=== PATIENT | female | born 1945 | race Two or more races ===

== ENCOUNTER 2024-11-27 04:54 | Emergency (ER) | payer MEDICARE, MEDICAID, SELFPAY ==
[2024-11-27 05:03] VITALS: BP 127/88; PULSE 107; RESP 20; TEMP 36.8; O2SAT 98
--- NOTE | 2024-11-27 05:03 | EKG_ITS ---
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
--- NOTE | 2024-11-27 05:04 | PD.EDRME ---
Rapid Medical Screening Exam RME Arrival date/time: 11/27/24 04:54 79 yo f present to ED for c/o abd pain. I have greeted and performed a focused initial assessment of this patient. A comprehensive ED assessment and evaluation of the patient, analysis of all test results, and completion of the medical decision making process will be conducted by additional ED providers. Chief Complaint: Abdominal Pain Time Seen by Provider: 11/27/24 04:58
[2024-11-27] MEDS: traMADol HCL 50 MG TABLET PO (05:19)
[2024-11-27 05:50] LABS: Basophils # (Auto) 0.1 Thou/mm3 (0.0-0.2); Basophils % (Auto) 1 % (0-2.5); Eosinophils # (Auto) 0.2 Thou/mm3 (0.0-0.5); Eosinophils % (Auto) 2 % (0-10); Hematocrit 40.3 % (36.0-46.0); Hemoglobin 13.9 g/dL (12.0-16.0); Immature Granulocytes % (Auto) 0 % (0-0); Immature Granulocytes Auto 0.03 Thou/mm3 (0.00-0.00); Lymphocytes # (Auto) 0.6 Thou/mm3 (1.0-4.8); Lymphocytes % (Auto) 7 % (10-50); Mean Corpuscular HGB Conc 34.5 g/dl (31.0-37.0); Mean Corpuscular Hemoglobin 32.2 pg (25.0-35.0); Mean Corpuscular Volume 93 fL (80-100); Monocytes # (Auto) 0.5 Thou/mm3 (0.0-0.8); Monocytes % (Auto) 6 % (0-12); Neutrophils # (Auto) 7.3 Thou/mm3 (1.8-7.7); Neutrophils % (Auto) 84 % (37-80); Nucleated Red Blood Cell % 0 /100 WBC (0); Platelet Count 233 Thou/mm3 (140-440); RDW Standard Deviation 44.3 fL (36.4-46.3); Red Blood Count 4.32 Miln/mm3 (4.00-5.20); White Blood Count 8.6 Thou/mm3 (3.6-11.0)
[2024-11-27 06:11] LABS: Alanine Aminotransferase 15 U/L (10-49); Albumin, Serum 4.8 gm/dL (3.4-4.8); Alkaline Phosphatase 107 U/L (46-116); Anion Gap 13 (7-16); Aspartate Amino Transferase 19 U/L (0-34); BUN/Creatinine Ratio 23 Ratio (12-20); Bilirubin,Total 0.4 mg/dL (0.3-1.2); Blood Urea Nitrogen 23 mg/dL (9-23); Calcium 10.1 mg/dL (8.3-10.6); Calcium (Corrected) 10.1 mg/dL (8.5-10.1); Carbon Dioxide 20.5 mMol/L (20.0-31.0); Chloride 110 mMol/L (98-107); Globulin 2.4 gm/dL (2.3-3.5); Glucose 125 mg/dL (74-106); Lipase 36 U/L (12-53); Osmolality,Calculated 289 (275-295); Potassium 3.9 mMol/L (3.4-5.1); Sodium 143 mMol/L (136-145); Total Protein 7.2 gm/dL (5.7-8.2); Troponin I < 0.020 ng/mL (0.0-0.045); eGFR 57 See Note
[2024-11-27] MEDS: ONDANSETRON ODT 4 MG TABRAP PO (06:15)
[2024-11-27 08:29] VITALS: BP 137/102; PULSE 110; RESP 15; TEMP 36.4; O2SAT 98
--- NOTE | 2024-11-27 08:34 | PC.NURSE ---
Pt arrives from home with abdominal pain that began last night in the epigastric region accompanied w/nausea. pt walks with walker at baseline. Family at bedside attentive to pt, pt is hypertensive on tele all other vss.
--- NOTE | 2024-11-27 09:19 | CHAP ---
Patient expressed gratitude for visit and prayer.
[2024-11-27] MEDS: LIDOCAINE VISCOUS 2% 15 ML UDC 10 ML PO (10:03)
[2024-11-27] MEDS: MG HYD/AL HYD/SIME (Maalox Reg) SUSP 30 ML UDC PO (10:03)
--- NOTE | 2024-11-27 10:28 | EDNOTE_ITS ---
ED Abdominal Pain RME/HPI General Chief Complaint: Abdominal Pain Stated complaint: ABD PAIN Time seen by provider: 11/27/24 04:58 Arrival date/time: 11/27/24 04:54 RME / HPI RME / HPI narrative: 11/27/24 04:54 79 yo f present to ED for c/o abd pain. I have greeted and performed a focused initial assessment of this patient. A comprehensive ED assessment and evaluation of the patient, analysis of all test results, and completion of the medical decision making process will be conducted by additional ED providers. DR. ECHEVARRIA MAIN ED EVALUATION 79 year old female with history of hypertension presents to the ED for evaluation of abdominal pain beginning yesterday ~ 7pm, 1 hour after eating a chicken sandwich for dinner. States the pain is located most to the epigastric area, without radiation, rating as moderate. States pain persisted through the night and was only very minimally improved after drinking Mylanta and a warm chamomile tea. Noted pain to be aggravated while lying flat. Denies any fevers, chills, chest pain, cough, shortness of breath, vomiting, diarrhea, constipation, or urinary symptoms. Related Data Home Medications ?Medication ?Instructions ?Recorded ?Confirmed gabapentin 300 mg capsule 300 mg PO TID 03/07/20 11/01/21 metoprolol tartrate 50 mg tablet 50 mg PO BID 03/07/20 11/01/21 lisinopril 40 mg tablet 40 mg PO QDAY 06/27/21 11/01/21 Previous Rx's ?Medication ?Instructions ?Recorded hydrocodone 5 mg-acetaminophen 325 1 tab PO Q8H PRN severe pain 03/10/20 mg tablet (scale score 7-10) #20 tabs sennosides 8.6 mg-docusate sodium 1 tab PO HS PRN Constipation #15 03/10/20 50 mg tablet (DOK Plus) tabs cyanocobalamin (vitamin B-12) 500 500 mcg PO QDAY #90 tabs 07/09/21 mcg tablet (Vitamin B-12) folic acid 1 mg tablet 1 mg PO QDAY #90 tabs 07/09/21 ondansetron HCl 4 mg tablet 4 mg PO Q6H PRN nausea and 04/02/22 vomiting #14 tabs Allergies Allergy/AdvReac Type Severity Reaction Status Date / Time No Known Allergies Allergy Verified 10/20/23 23:30 Review of Systems Review of Systems Narrative Review of Systems: Gen: No fever, no chills, no weight loss EYES: No discharge, no visual changes, no pain HEENT: No ear pain, no congestion, no sore throat PULM: no shortness of breath, no cough, no congestion CV: No chest pain, no dyspnea on exertion, no palpitations, no chest tightness GI: No nausea, no vomiting, no diarrhea, + pain, no constipation : No frequency, no urgency,? no dysuria Musc/skel: No joint pain, no back pain Skin: No rash, no ecchymosis, no lesions Psyc: No hallucinations, no depression Heme/Lymph: No easy bleeding or bruising tendencies Neuro: No weakness, no headache Past Medical History Past Medical History NEUROLOGIC: Negative Neurological Disorders CARDIAC: Positive Cardiac Disorders and Hypertension REPRODUCTIVE: Positive Previous Pregnancies MUSCULOSKELETAL: Positive Degenerative Disk Disease HEMATOLOGIC: Positive Blood Disorders and Anemia OTHER HISTORY: Positive Blood Transfusions Surgical History SURGICAL: Positive Hysterectomy Social History SMOKING STATUS: Never smoker SUBSTANCE USE: does not use ED Exam Narrative Physical exam: GENERAL APPEARANCE: AxOx4, no obvious distress, nontoxic appearing HEENT: NC, AT. MMM. EOMI, clear conjunctiva, oropharynx clear. NECK: Supple without lymphadenopathy. No stiffness or restricted ROM. HEART: Normal rate and regular rhythm, normal S1/S1, no m/r/g LUNGS: CTAB, moving air well. No crackles or wheezes are heard. ABDOMEN: Soft, well healed vertical surgical scar noted, nontender, nondistended with good bowel sounds heard. BACK: No midline C/T/L spine pain or deformity, No CVAT, no obvious deformity. EXTREMITIES: Without cyanosis, clubbing or edema. MUSCULOSKELETAL: FROM of all major joints, no chest tenderness NEUROLOGICAL: Grossly nonfocal. Alert and oriented, moving all 4 extremities. CN not formally tested but appear grossly intact. Skin: Warm and dry without any rash. Course Quality Measures none Orders Category Date Time Status EKG (ED ONLY) *Do not use* NOW Care 11/27/24 05:03 Completed EKG (ED Only) Stat Exams 11/27/24 05:03 Draft CBC Stat Lab 11/27/24 05:14 Completed CMP [Comprehensive Metabolic Panel] Stat Lab 11/27/24 05:14 Completed Lipase Stat Lab 11/27/24 05:14 Completed Troponin I Stat Lab 11/27/24 05:14 Completed Lidocaine 2% Viscous [Xylocaine 2% Viscous] Med 11/27/24 09:47 Discontinued 10 ml PO X1 ONE Ondansetron Odt [Zofran Odt] Med 11/27/24 06:07 Discontinued 4 mg PO X1 ONE Ondansetron Odt [Zofran Odt] Med 11/27/24 06:11 Discontinued 4 mg PO X1 ONE mg Hyd/Al Hyd/Aditya Susp [Maalox Susp] Med 11/27/24 09:47 Discontinued 30 ml PO X1 ONE traMADol HCL [Ultram] Med 11/27/24 05:03 Discontinued 50 mg PO X1 ONE Reevaluation(s) Reevaluation #1: Patient remains clinically stable throughout the emergency department visit. We reviewed all the results, analysis, and treatment plans. Patient is amenable to discharge. Strict return precautions were outlined. Patient was discharged in stable condition. Time: 09:50 Vital Signs Vital signs: Vital Signs Temperature 98.3 F 11/27/24 05:03 Pulse Rate 107 H 11/27/24 05:03 Respiratory Rate 20 11/27/24 05:03 Blood Pressure 127/88 H 11/27/24 05:03 Pulse Oximetry (%) 98 11/27/24 05:03 Oxygen Delivery Method Room Air 11/27/24 05:03 Pulse ox is 98% on room air which is adequate. Abdominal Pain MDM MDM Narrative MDM Narrative:: Radha Gunter am scribing for and in the presence of Dr. Echevarria. Patient data External records reviewed:: [facility] previous records (I reviewed ED visit on 10/21/2023) Clinical information provided by:: patient Social determinants that could affect healthcare access:: none Patient has the following chronic illnesses:: HTN How is presenting disease/condition affected by chronic disease/condition?: uneffected by Evaluation data The following diagnostics were reviewed and interpreted by me:: lab results and EKG tracing(s) (Sinus rhythm, rate 99, normal axis, normal interval, no acute ST or T-wave changes, no STEMI. ) Lab and/or radiology exams considered but not ordered:: None Interpretation Summary: As noted above Medications / Prescriptions Medications or Prescriptions considered but not ordered:: None Medication administrations:: Medication Administration History Discontinued Medications Al Hydrox/Mg Hydrox/Simethicone (Mg Hyd/Al Hyd/Aditya (Maalox Reg) Susp 30 Ml Udc) 30 ml PO X1 ONE Stop: 11/27/24 09:48 Last Admin: 11/27/24 10:03 Dose: 30 ml Documented By: TM Lidocaine HCl (Lidocaine Viscous 2% 15 Ml Udc) 10 ml PO X1 ONE Stop: 11/27/24 09:48 Last Admin: 11/27/24 10:03 Dose: 10 ml Documented By: TM Comments: Ondansetron HCl (Ondansetron Odt 4 Mg Tabrap) 4 mg PO X1 ONE; Protocol Stop: 11/27/24 06:08 Last Admin: 11/27/24 06:11 Dose: Not Given Documented By: CVL Non-Admin Reason: Duplicate Medication on eMAR Ondansetron HCl (Ondansetron Odt 4 Mg Tabrap) 4 mg PO X1 ONE; Protocol Stop: 11/27/24 06:12 Last Admin: 11/27/24 06:15 Dose: 4 mg Documented By: CVL Tramadol HCl (Tramadol Hcl 50 Mg Tablet) 50 mg PO X1 ONE Stop: 11/27/24 05:04 Last Admin: 11/27/24 05:19 Dose: 50 mg Documented By: CVL See above Consultations Consultation(s) initiated? (list below): No Diagnosis Differential diagnosis abdominal pain: abdominal pain, constipation, gastroenteritis and other (Gastritis) Most likely diagnosis given after review of the tests above:: Peptic ulcer disease Admission Indicated Admission indicated?: not indicated Admission Request Was there a request for admission?: No Disposition Plan Disposition Plan: Discharge Discharge Attestation Discharge Attestation: The patient and all family members were given an opportunity to ask questions and understood the discharge instructions. Discharge instructions specifically effects, indications for sooner follow up or return to the emergency department, and the expected course of current diagnosis. Patient condition: Stable Discharge Plan Plan Patient Disposition: HOME (Self Care) Prescriptions/Referrals Prescriptions/Med Rec: No Action lisinopril 40 mg tablet 40 mg PO QDAY cyanocobalamin (vitamin B-12) [Vitamin B-12] 500 mcg Tablet 500 mcg PO QDAY Qty: 90 0RF folic acid 1 mg Tablet 1 mg PO QDAY Qty: 90 0RF metoprolol tartrate 50 mg Tablet 50 mg PO BID gabapentin 300 mg Capsule 300 mg PO TID hydrocodone-acetaminophen 5-325 mg Tablet 1 tab PO Q8H MDD 3 tabs PRN (Reason: severe pain (scale score 7-10)) Qty: 20 0RF sennosides-docusate sodium [DOK Plus] 8.6-50 mg Tablet 1 tab PO HS PRN (Reason: Constipation) Qty: 15 0RF ondansetron HCl 4 mg tablet 4 mg PO Q6H PRN (Reason: nausea and vomiting) Qty: 14 0RF Referrals: Sacha Azul MD [Primary Care Provider] - In 1 week Problem List Clinical Impression: Peptic ulcer disease Patient/Caregiver Discharge Instructions Education Materials: ED PEPTIC ULCER vs GASTRITIS Additional Instructions: Puede angus famotidina (Pepcid) de venta zafar, 20 mg dos veces al d?a spencer los pr?ximos 7 d?as. Delaney un seguimiento con lopez m?dico de atenci?n primaria en 5 a 7 d?as para volver a controlarlo. Puede regresar al departamento de emergencias antes si los s?ntomas empeoran o si nota alg?n problema nuevo que le preocupe. Print Language: Croatian Stand Alone Forms: Isha Award Info., Patient Portal Info Letter
[2024-11-27 10:40] VITALS: BP 144/88; PULSE 84; RESP 14; TEMP 36.6; O2SAT 98
== END 2024-11-27 10:39 | disposition home or self-care (01) ==
PROVIDERS: Physician Assistant; Emergency Provider Emergency Medicine; PCP Family Medicine
DX: K27.9 Peptic ulcer, site unspecified, unspecified as acute or chronic, without hemorrhage or perforation (principal); I10 Essential (primary) hypertension
CPT/HCPCS: 36415; 80053; 81001; 83690; 84484; 85025; 87086; 93005; 99283; J3490; Q0162; A9270

== ENCOUNTER → 2024-12-07 | Outpatient (CLI) | payer MEDICARE, MEDICAID, SELFPAY ==
--- NOTE | 2024-12-07 16:09 | XR_ITS ---
EXAMINATION: Ankle, left 3 views . Technique: Ankle AP, oblique, lateral 3 views Date and time of exam: December 07, 2024 1625 hours INDICATIONS: Chronic ankle pain, history ankle fusion FINDINGS: Severe osteopenia Tibiotalar talar calcaneal fusion with satisfactory alignment Orthopedic hardware satisfactory position No acute fracture Resection distal fibula IMPRESSION: Severe osteopenia Extensive ankle fusion with satisfactory alignment
--- NOTE | 2024-12-07 16:09 | XR_ITS ---
Examination: Lumbar spine, 5 views Technique: Lumbar spine AP, lateral, coned lateral lower lumbar spine, bilateral obliques 5 views Exam date and time: December 07, 2024 1625 hours INDICATIONS: Low back pain radiating down the left side years, history lumbar spine surgery FINDINGS: Severe osteopenia Lumbar dextroscoliosis 15 degrees Left hip arthroplasty Diffuse advanced facet arthropathy Transpedicular lumbar fusion L2-L5 with satisfactory alignment Advanced degenerative disc disease T12-L1 Prominent lumbar spondylosis IMPRESSION: Transpedicular lumbar fusion L2-L5 with satisfactory alignment Advanced degenerative disc disease T12-L1
--- NOTE | 2024-12-07 16:09 | XR_ITS ---
Examination: Knee, left , 3 views Technique: Knee AP, lateral, oblique 3 views Date and time of exam: December 07, 2024 1625 hours INDICATIONS: Left knee pain years FINDINGS: Severe osteopenia Total left knee arthroplasty Satisfactory alignment No definite loosening of the prosthetic components IMPRESSION: Severe osteopenia Total left knee arthroplasty with satisfactory alignment
--- NOTE | 2024-12-07 16:09 | XR_ITS ---
Examination:Left hip AP, lateral, AP pelvis 3 views Technique: Hip AP lateral, AP pelvis, 3 views Exam date and time:December 07, 2024 1625 hours INDICATIONS: Left hip pain years FINDINGS: Left hip arthroplasty. Satisfactory alignment Old fracture deformities left superior inferior pubic rami and left acetabulum Healed right hip fracture Partial visualization superficial femoral artery stent Severe osteopenia IMPRESSION: Left hip arthroplasty with satisfactory alignment.
== END | disposition home or self-care (01) ==
PROVIDERS: PCP Family Medicine; Referring Provider Orthopaedic Surgery; Visit Provider Orthopaedic Surgery
DX: M51.35 Other intervertebral disc degeneration, thoracolumbar region (principal); M43.26 Fusion of spine, lumbar region; Z96.642 Presence of left artificial hip joint; M85.872 Other specified disorders of bone density and structure, left ankle and foot; M24.672 Ankylosis, left ankle; Z96.652 Presence of left artificial knee joint; M85.88 Other specified disorders of bone density and structure, other site
CPT/HCPCS: 72110; 73502; 73562; 73610

== ENCOUNTER 2025-06-07 15:13 | Emergency (ER) | payer MEDICAID, SELFPAY ==
[2025-06-07 15:14] VITALS: BMI 22.6
[2025-06-07 15:22] VITALS: BP 146/82; PULSE 73; RESP 19; TEMP 36.6; O2SAT 100
--- NOTE | 2025-06-07 15:51 | EDNOTE_ITS ---
<Statement entered by Vandana Strong MD - 06/07/25 17:21> As co-signing physician, I was present and available for consult prn. I concur with the plan and care as documented by the midlevel provider. ED Skin Abcess FB-RME/HPI General Chief complaint: General Adult/Misc Complain Stated complaint: HEMORRHOIDS; STATES SOMETHING IS OUT Time Seen by Provider: 06/07/25 15:22 Source: patient Arrival date/time: 06/07/25 15:13 80-year-old female with a history of hypertension presents to the emergency room with a chief complaint of hemorrhoids pain, itching x 2 weeks Mode of arrival: ambulatory Limitations: no limitations Related Data Home Medications ?Medication ?Instructions ?Recorded ?Confirmed gabapentin 300 mg capsule 300 mg PO TID 03/07/2011/01 metoprolol tartrate 50 mg tablet 50 mg PO BID 03/07/20 11/01/21 lisinopril 40 mg tablet 40 mg PO QDAY 06/27/2111/01 Previous Rx's ?Medication ?Instructions ?Recorded hydrocodone 5 mg-acetaminophen 325 1 tab PO Q8H PRN se gurmeet pain 03/10/20 mg tablet (scale score 7-10) #20 tabs sennosides 8.6 mg-docusate sodium 1 tab PO HS PRN Cons tipation #15 03/10/20 50 mg tablet (DOK Plus) tabs cyanocobalamin (vitamin B-12) 500 500 mcg PO QDAY #90 tabs 07/09/21 mcg tablet (Vitamin B-12) folic acid 1 mg tablet 1 mg PO QDAY #90 tabs ondansetron HCl 4 mg tablet 4 mg PO Q6H PRN nausea and 04/02/22 vomiting #14 tabs clotrimazole 1 % topical cream 1 applic topical BID 4 weeks #30 06/07/25 grams dimethicone 1 %-zinc oxide 10 1 applic topical .prn ra sh #113 06/07/25 %-vit A and D-aloe vera topical grams cream (Zinc Oxide Diaper Cream) Allergies Allergy/AdvReac Type Severity Reaction Status Date / Time No Known Allergies Allergy Verified 06/07/25 15:17 Review of Systems Review of Systems Systems Reviewed: All systems reviewed, normal except as documented Constitutional Constitutional: Reports system reviewed and no additional complaints, except as documented, Denies fatigue, Denies fever(s), Denies headache(s) and Denies weakness Eyes Eyes: Reports system reviewed and no additional complaints, except as documented, Denies blurry vision and Denies change in vision ENT Ears, Nose, Mouth, and Throat: Reports system reviewed and no additional complaints, except as documented, Denies otalgia, Denies headache(s), Denies nasal congestion, Denies throat swelling and Denies vertigo Cardiovascular Cardiovascular: Reports system reviewed and no additional complaints, except as documented, Denies chest pain, Denies dyspnea and Denies dyspnea on exertion Respiratory Respiratory: Reports system reviewed and no additional complaints, except as documented, Denies chest congestion, Denies cough, Denies dyspnea, Denies dyspnea on exertion and Denies wheezing Gastrointestinal Gastrointestinal: Reports system reviewed and no additional complaints, except as documented, Denies abdominal pain, Denies cramping, Denies nausea and Denies vomiting Genitourinary Genitourinary: Reports system reviewed and no additional complaints, except as documented Musculoskeletal Musculoskeletal: Reports system reviewed and no additional complaints, except as documented and Denies back pain Integumentary/Breasts Skin/Breast: Reports system reviewed and no additional complaints, except as documented and Denies wounds Neurologic Neurologic: Reports system reviewed and no additional complaints, except as documented, Denies confusion, Denies headache(s), Denies lack of coordination, Denies vertigo and Denies weakness Psychiatric Psychiatric: Reports system reviewed and no additional complaints, except as documented, Denies anxiety, Denies confusion, Denies depression, Denies paranoia, Denies suicidal ideation and Denies tactile hallucinations Endocrine Endocrine: Reports system reviewed and no additional complaints, except as documented and Denies fatigue Hematologic/Lymphatic Hematologic/Lymphatic: Reports system reviewed and no additional complaints, except as documented and Denies lymphadenopathy Allergic/Immunologic Allergic/Immunologic: Reports system reviewed and no additional complaints, except as documented, Denies throat swelling, Denies urticaria and Denies wheezing ED Exam General Limitations: Present no limitations General appearance: Present alert and in no apparent distress Head Head exam: Present atraumatic Eye Eye exam: Present normal appearance, PERRL and EOMI ENT ENT exam: Present normal exam, normal oropharynx and mucous membranes moist Neck Neck exam: Present normal inspection, full ROM and trachea midline Chest Chest inspection: Present normal inspection and symmetric chest wall rise Respiratory Respiratory exam: Present normal lung sounds bilaterally Cardiovascular Cardiovascular exam: Present regular rate, normal rhythm and normal heart sounds Abdominal Exam Abdominal exam: Present soft and normal bowel sounds Rectal Exam Rectal exam: Present hemorrhoids Extremities Exam Extremities exam: Present normal inspection and full ROM Back Exam Back exam: Present normal inspection and full ROM Neurological Exam Neurological exam: Present alert, oriented X3 and CN II-XII intact Psychiatric Psychiatric exam: Present normal affect and normal mood Skin Skin exam: Present warm, dry, intact and normal color Course Quality Measures none Orders Category Date Time Status Fluconazole [Diflucan] Med 06/07/25 15:48 Discontinued 150 mg PO X1 ONE Vital Signs Vital signs: Vital Signs Temperature 97.9 F 06/07/25 15:22 Pulse Rate 73 06/07/25 15:22 Respiratory Rate 19 06/07/25 15:22 Blood Pressure 146/82 H 06/07/25 15:22 Pulse Oximetry (%) 100 06/07/25 15:22 Oxygen Delivery Method Room Air 06/07/25 15:22 Skin / Abscess / Foreign Body MDM Narrative MDM Narrative:: 80-year-old female with a history of hypertension presents to the emergency room with a chief complaint of hemorrhoids pain, itching x 2 weeks Patient is hemodynamically stable and in no apparent distress Physical examination shows an external hemorrhoid coming out of the right side of the anus. It is small and the patient states that is causing a lot of itchiness. Around the anus there is also a lot of moisture and what appears to be a fungal rash. Antibiotics were given to the patient and the patient was discharged with clotrimazole cream. The patient has an appointment in July with a general surgeon Dr Burton to remove the external hemorrhoid Patient was discharged and educated to follow-up with primary care provider in the next 24 to 48 hours and return to the emergency room for any evidence of worsening signs or symptoms Patient data External records reviewed:: [facility] previous records Clinical information provided by:: patient Social determinants that could affect healthcare access:: none Patient has the following chronic illnesses:: No chronic illness How is presenting disease/condition affected by chronic disease/condition?: no chronic disease Evaluation data The following diagnostics were reviewed and interpreted by me:: lab results and radiology exam(s) Lab and/or radiology exams considered but not ordered:: Labs and radiology exams considered in order Interpretation Summary: N/A Medications / Prescriptions Medications or Prescriptions considered but not ordered:: Medication given Medication administrations:: Medication Administration History Discontinued Medications Fluconazole (Fluconazole 150 Mg Tablet) 150 mg PO X1 ONE Stop: 06/07/25 15:49 Last Admin: 06/07/25 15:55 Dose: 150 mg Documented By: Medication given Consultations Consultation(s) initiated? (list below): No Diagnosis Skin/Abscess Differential Diagnosis: cellulitis, contact dermatitis and other Most likely diagnosis given after review of the tests above:: Janet dermatitis Admission Indicated Admission indicated?: not indicated Admission Request Was there a request for admission?: No Disposition Plan Disposition Plan: Discharge Discharge Attestation Discharge Attestation: The patient and all family members were given an opportunity to ask questions and understood the discharge instructions. Discharge instructions specifically effects, indications for sooner follow up or return to the emergency department, and the expected course of current diagnosis. Patient condition: Stable Discharge Plan Plan Patient Disposition: HOME (Self Care) Discharge Disposition comment: Stable Prescriptions/Referrals Prescriptions/Med Rec: New clotrimazole 1 % cream 1 applic topical BID 28 Days Qty: 30 0RF Zinc Oxide Diaper Cream 1-10 % cream 1 applic topical .prn Qty: 113 0RF No Action lisinopril 40 mg tablet 40 mg PO QDAY cyanocobalamin (vitamin B-12) [Vitamin B-12] 500 mcg Tablet 500 mcg PO QDAY Qty: 90 0RF folic acid 1 mg Tablet 1 mg PO QDAY Qty: 90 0RF metoprolol tartrate 50 mg Tablet 50 mg PO BID gabapentin 300 mg Capsule 300 mg PO TID hydrocodone-acetaminophen 5-325 mg Tablet 1 tab PO Q8H MDD 3 tabs PRN (Reason: severe pain (scale score 7-10)) Qty: 20 0RF sennosides-docusate sodium [DOK Plus] 8.6-50 mg Tablet 1 tab PO HS PRN (Reason: Constipation) Qty: 15 0RF ondansetron HCl 4 mg tablet 4 mg PO Q6H PRN (Reason: nausea and vomiting) Qty: 14 0RF Problem List Clinical Impression: Candidal dermatitis Patient/Caregiver Discharge Instructions Education Materials: ED Janet Skin Infection (Adult), ED Fungal Skin Infection (Tinea) Additional Instructions: Por favor, consulte con lopez m?dico de cabecera en las pr?ximas 24 a 48 horas. Le enviaron un kulwinder?ento a lopez farmacia; rec?jalo y t?paris seg?n las indicaciones. Apl?quelo cada vez que se cambie la ropa interior. Por favor, asista a lopez perry con lopez cirujano general para la extracci?n de hemorroides. Si observa cualquier signo de empeoramiento de los signos o s?ntomas, acuda a urgencias de inmediato. Print Language: Greenlandic Stand Alone Forms: Isha Award Info., Patient Portal Info Letter PA/CONSULTANT INTERNSHIP Supervising Physician PING/AMARA Supervising Physician: Dr. Souza
[2025-06-07] MEDS: FLUCONAZOLE 150 MG TABLET PO (15:55)
== END 2025-06-07 16:03 | disposition home or self-care (01) ==
PROVIDERS: Emergency Provider Emergency Medicine
DX: B37.2 Candidiasis of skin and nail (principal); K64.4 Residual hemorrhoidal skin tags
CPT/HCPCS: 99282; A9270

== ENCOUNTER 2025-06-25 04:20 | Emergency (ER) | payer MEDICAID, SELFPAY ==
--- NOTE | 2025-06-25 | XR_ITS ---
Examination: Abdomen sonogram, Limited Date and time of exam: June 25, 2025 0712 hours INDICATIONS: Abdominal pain beginning 5 days ago Technique: Real-time lee scale transabdominal sonographic images of the upper abdomen obtained. Findings: Multiple gallstones Normal gallbladder wall 0.2 cm Common bile duct 0.3 cm Pancreas obscured by bowel gas Liver 15.8 cm fatty infiltration no focal liver lesions Normal hepatopedal portal venous flow Patent IVC IMPRESSION: Cholelithiasis, negative for cholecystitis
[2025-06-25 04:20] VITALS: BMI 25.6
[2025-06-25 05:18] VITALS: BP 132/78; PULSE 82; RESP 15; TEMP 36.8; O2SAT 96
--- NOTE | 2025-06-25 06:32 | EKG_ITS ---
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
--- NOTE | 2025-06-25 06:33 | EDNOTE_ITS ---
ED Abdominal Pain RME/HPI General Chief Complaint: Abdominal Pain Stated complaint: ABD PAIN X 1DAY Time seen by provider: 06/25/25 06:15 Arrival date/time: 06/25/25 04:20 Source: patient and family Limitations: no limitations RME / HPI RME / HPI narrative: Patient is an 80-year-old female with medical history notable for hypertension, gastritis that in emerged from concerns for epigastric pain, rectal pain as well as left upper extremity rash. Per the patient she has had this pain on and off for many weeks. Denies nausea vomiting diarrhea. Patient has regular bowel movements, no melena no hematochezia. Denies fevers chills chest pain palpitations. Patient does endorse dysuria no hematuria. No recent travel no sick contacts. No allergies to medications. No drugs alcohol or smoking. Patient has an appointment on the with a logistics engineer for an endoscopy. With regards the patient's rectal pain, states that she feels that something is protruding from her anus, denies any bleeding. No trauma With regards the patient's rash on her left upper extremity, states that she has had this for many weeks is itchy, no trauma no bug bites Related Data Home Medications ?Medication ?Instructions ?Recorded ?Confirmed gabapentin 300 mg capsule 300 mg PO TID 03/07/2011/01 metoprolol tartrate 50 mg tablet 50 mg PO BID 03/07/20 11/01/21 lisinopril 40 mg tablet 40 mg PO QDAY 06/27/2111/01 Previous Rx's ?Medication ?Instructions ?Recorded hydrocodone 5 mg-acetaminophen 325 1 tab PO Q8H PRN se gurmeet pain 03/10/20 mg tablet (scale score 7-10) #20 tabs sennosides 8.6 mg-docusate sodium 1 tab PO HS PRN Cons tipation #15 03/10/20 50 mg tablet (DOK Plus) tabs cyanocobalamin (vitamin B-12) 500 500 mcg PO QDAY #90 tabs 07/09/21 mcg tablet (Vitamin B-12) folic acid 1 mg tablet 1 mg PO QDAY #90 tabs ondansetron HCl 4 mg tablet 4 mg PO Q6H PRN nausea and 04/02/22 vomiting #14 tabs clotrimazole 1 % topical cream 1 applic topical BID 4 weeks #30 06/07/25 grams dimethicone 1 %-zinc oxide 10 1 applic topical .prn ra sh #113 06/07/25 %-vit A and D-aloe vera topical grams cream (Zinc Oxide Diaper Cream) cephalexin 500 mg capsule 500 mg PO QID #20 caps 06/25 Allergies Allergy/AdvReac Type Severity Reaction Status Date / Time No Known Allergies Allergy Verified 06/07/25 15:17 ED Exam General Limitations: Present no limitations General appearance: Present alert and in no apparent distress Head Head exam: Present atraumatic and normocephalic Eye Eye exam: Present normal appearance and PERRL ENT ENT exam: Present normal exam Neck Neck exam: Present normal inspection Chest Chest inspection: Present normal inspection Respiratory Respiratory exam: Present normal lung sounds bilaterally Cardiovascular Cardiovascular exam: Present normal rhythm Abdominal Exam Abdominal exam: Present soft; Absent distention, tenderness, guarding, rebound or rigidity Rectal Exam Rectal exam: Present hemorrhoids (Nonthrombosed small external hemorrhoids, chaperoned by ED aviation maintenance technician) Neurological Exam Neurological exam: Present alert, oriented X3 and other Skin Skin exam: Present warm, dry and other (Erythematous rash appreciated to patient's left forearm, approximately 6 inches x 3 inches, no fluctuance or crepitus, no pustules or papules appreciated, pruritic) Course Quality Measures none Orders Category Date Time Status EKG (ED ONLY) *Do not use* NOW Care 06/25/25 06:32 Completed EKG (ED Only) Stat Exams 06/25/25 06:32 Draft US abdomen limited Stat Exams 06/25/25 Completed CBC Stat Lab 06/25/25 07:30 Completed CMP [Comprehensive Metabolic Panel] Stat Lab 06/25/25 07:30 Completed Lipase Stat Lab 06/25/25 07:30 Completed Troponin I Stat Lab 06/25/25 07:30 Completed UA, C/S IF [Urinalysis, C/S if Indicated] Stat Lab 06/25/25 07:10 Completed Urine Culture Stat Lab 06/25/25 07:10 Received Lidocaine 2% Viscous [Xylocaine 2% Viscous] Med 06/25/25 06:32 Discontinued 15 ml PO X1 ONE cefTRIAXone [Rocephin] 1,000 mg Med 06/25/25 11:52 Ordered Lidocaine 1% 20 ml [Xylocaine 1% 20 ML] 2.1 ml IM X1 mg Hyd/Al Hyd/Aditya Susp [Maalox Susp] Med 06/25/25 06:32 Discontinued 30 ml PO X1 ONE Vital Signs Vital signs: Vital Signs Temperature 98.3 F 06/25/25 05:18 Pulse Rate 82 06/25/25 05:18 Respiratory Rate 15 06/25/25 05:18 Blood Pressure 132/78 H 06/25/25 05:18 Pulse Oximetry (%) 96 06/25/25 05:18 Oxygen Delivery Method Room Air 06/25/25 05:18 Abdominal Pain MDM MDM Narrative MDM Narrative:: Patient is a 80-year-old female is in the emerged primary concerns for abdominal pain, left upper extremity rash as well as rectal pain. Vital signs and exam as listed. Concern for cellulitis, dermatitis, candidal infection of the left upper extremity. Also concern for nonthrombosed hemorrhoid, nonbleeding of the rectum. No evidence of rectal prolapse on rectal exam. No surrounding erythema fluctuance or crepitus. No perineal involvement. Less likely necrotizing infection. Will progress the patient's abdominal pain, pain is chronic, patient states that she has had multiple workups for this, concern that patient may be developing an ulcer, gastritis, GERD, pancreatitis cholelithiasis among others. Ordered labs, right upper quadrant ultrasound offered medication for symptom relief. Labs with evidence of white blood cell count 11.1, left shift of 84%, no significant electrolyte abnormality, no evidence of acute renal dysfunction, liver function test normal, troponin not elevated, EKG without evidence of ischemia or arrhythmia, urinalysis with 22 red blood cells, leuk esterase positive, 37 white blood cells concerning for urinary tract infection. Will provide patient with a dose of antibiotics here and discharged home with a course of antibiotics. Patient also with gallstones in her gallbladder no evidence of cholecystitis. Advised patient to follow-up with her primary care doctor request follow-up with the surgeon for further evaluation and workup of her gallstones. Advised her to stay away from fatty food, return immediately if she develops fever worsening symptoms or new symptoms of concern. Patient data External records reviewed:: [facility] previous records Clinical information provided by:: patient and family Social determinants that could affect healthcare access:: none (Language barrier, use certified traffic and transport planner) Patient has the following chronic illnesses:: See MDM How is presenting disease/condition affected by chronic disease/condition?: exacerbated by Evaluation data The following diagnostics were reviewed and interpreted by me:: lab results and radiology exam(s) Lab and/or radiology exams considered but not ordered:: None Interpretation Summary: See MDM Medications / Prescriptions Medications or Prescriptions considered but not ordered:: None Medication administrations:: Medication Administration History Ceftriaxone Sodium 1,000 mg/ (Lidocaine HCl 2.1 ml) 0 mg IM X1 ONE Stop: 06/25/25 11:53 Discontinued Medications Al Hydrox/Mg Hydrox/Simethicone (Mg Hyd/Al Hyd/Aditya (Maalox Reg) Susp 30 Ml Udc) 30 ml PO X1 ONE Stop: 06/25/25 06:33 Last Admin: 06/25/25 06:37 Dose: 30 ml Documented By: PRABHU Lidocaine HCl (Lidocaine Viscous 2% 15 Ml Udc) 15 ml PO X1 ONE Stop: 06/25/25 06:33 Last Admin: 06/25/25 06:37 Dose: 15 ml Documented By: PRABHU See below Consultations Consultation(s) initiated? (list below): No Diagnosis Differential diagnosis abdominal pain: abdominal pain, acute appendicitis, constipation and other (Urinary tract infection) Most likely diagnosis given after review of the tests above:: See above Admission Indicated Admission indicated?: not indicated Admission Request Was there a request for admission?: No Disposition Plan Disposition Plan: Discharge Discharge Attestation Discharge Attestation: The patient and all family members were given an opportunity to ask questions and understood the discharge instructions. Discharge instructions specifically effects, indications for sooner follow up or return to the emergency department, and the expected course of current diagnosis. Patient condition: Stable Discharge Plan Plan Patient Disposition: HOME (Self Care) Patient condition on transfer: Stable Prescriptions/Referrals Prescriptions/Med Rec: New cephalexin 500 mg capsule 500 mg PO QID Qty: 20 0RF No Action lisinopril 40 mg tablet 40 mg PO QDAY cyanocobalamin (vitamin B-12) [Vitamin B-12] 500 mcg Tablet 500 mcg PO QDAY Qty: 90 0RF folic acid 1 mg Tablet 1 mg PO QDAY Qty: 90 0RF metoprolol tartrate 50 mg Tablet 50 mg PO BID gabapentin 300 mg Capsule 300 mg PO TID hydrocodone-acetaminophen 5-325 mg Tablet 1 tab PO Q8H MDD 3 tabs PRN (Reason: severe pain (scale score 7-10)) Qty: 20 0RF sennosides-docusate sodium [DOK Plus] 8.6-50 mg Tablet 1 tab PO HS PRN (Reason: Constipation) Qty: 15 0RF ondansetron HCl 4 mg tablet 4 mg PO Q6H PRN (Reason: nausea and vomiting) Qty: 14 0RF clotrimazole 1 % cream 1 applic topical BID 28 Days Qty: 30 0RF Zinc Oxide Diaper Cream 1-10 % cream 1 applic topical .prn Qty: 113 0RF Referrals: Temporary Provider,ED [Physician] - In 1 week Problem List Clinical Impression: Cholelithiasis Patient/Caregiver Discharge Instructions Education Materials: ED Gallstones with Biliary Colic Additional Instructions: Por favor hacer perry con un cirujano para evaluacion de las piedras en lopez vesicula. Regresar inmediatamente si tiene nuevos sintomas o sintomas de reocupacion Print Language: Nigerian Stand Alone Forms: Isha Award Info., Patient Portal Info Letter
[2025-06-25] MEDS: LIDOCAINE VISCOUS 2% 15 ML UDC PO (06:37)
[2025-06-25] MEDS: MG HYD/AL HYD/SIME (Maalox Reg) SUSP 30 ML UDC PO (06:37)
[2025-06-25 07:40] LABS: Collection Type, Urine Clean Catch
[2025-06-25 07:41] LABS: Basophils # (Auto) 0.1 Thou/mm3 (0.0-0.2); Basophils % (Auto) 1 % (0-2.5); Eosinophils # (Auto) 0.2 Thou/mm3 (0.0-0.5); Eosinophils % (Auto) 2 % (0-10); Hematocrit 38.5 % (36.0-46.0); Hemoglobin 12.5 g/dL (12.0-16.0); Immature Granulocytes Auto 0.04 Thou/mm3 (0.00-0.00); Lymphocytes # (Auto) 0.7 Thou/mm3 (1.0-4.8); Lymphocytes % (Auto) 7 % (10-50); Mean Corpuscular HGB Conc 32.5 g/dl (31.0-37.0); Mean Corpuscular Hemoglobin 31.2 pg (25.0-35.0); Mean Corpuscular Volume 96 fL (80-100); Monocytes # (Auto) 0.7 Thou/mm3 (0.0-0.8); Monocytes % (Auto) 7 % (0-12); Neutrophils # (Auto) 9.3 Thou/mm3 (1.8-7.7); Neutrophils % (Auto) 84 % (37-80); Nucleated Red Blood Cell # 0.00 Thou/mm3 (0.00-0.00); Nucleated Red Blood Cell % 0 /100 WBC (0); Platelet Count 302 Thou/mm3 (140-440); RDW Standard Deviation 47.1 fL (36.4-46.3); Red Blood Count 4.01 Miln/mm3 (4.00-5.20); White Blood Count 11.1 Thou/mm3 (3.6-11.0)
[2025-06-25 07:44] LABS: Bacteria,Urine 4+; Bilirubin,Urine Negative (Negative); Blood,Urine Trace (Negative); Color,Urine Yellow (Lt Yel-Yel); Glucose, Urine Negative (Negative); Hyaline Casts,Urine < 1 /hpf (0-1); Ketones,Urine Negative (Negative); Leukocyte Esterase,Urine Positive (Negative); Nitrite,Urine Positive (Negative); PH,Urine 6.0 (5.0-7.0); Protein,Urine Trace (Neg - Trace); RBC,Urine 22 /hpf (0-3); Specific Gravity,Urine 1.035 (1.001-1.035); Squamous Epithelial Cell,Urine 6 /hpf (0-5); Urobilinogen,Urine 2.0 mg/dL (0.0-1.0); WBC,Urine 37 /hpf (0-5)
[2025-06-25 07:57] LABS: Clarity,Urine Hazy (Clear/Hazy); Culture Indicated,Urine Yes
[2025-06-25 08:10] LABS: Alanine Aminotransferase < 7 U/L (10-49); Albumin, Serum 4.4 gm/dL (3.4-4.8); Albumin/Globulin Ratio 1.9 (1.2-2.2); Alkaline Phosphatase 95 U/L (46-116); Anion Gap 12 (7-16); Aspartate Amino Transferase 14 U/L (0-34); BUN/Creatinine Ratio 23 Ratio (12-20); Bilirubin,Total 0.4 mg/dL (0.3-1.2); Blood Urea Nitrogen 21 mg/dL (9-23); Calcium 9.9 mg/dL (8.3-10.6); Calcium (Corrected) 9.9 mg/dL (8.5-10.1); Carbon Dioxide 23.5 mMol/L (20.0-31.0); Chloride 109 mMol/L (98-107); Creatinine (Component) 0.9 mg/dL (0.6-1.3); Estimated Creatinine Clearance 42.9 mL/min (>60); Globulin 2.3 gm/dL (2.3-3.5); Glucose 110 mg/dL (74-106); Lipase 28 U/L (12-53); Osmolality,Calculated 290 (275-295); Potassium 4.4 mMol/L (3.4-5.1); Sodium 144 mMol/L (136-145); Total Protein 6.7 gm/dL (5.7-8.2); Troponin I < 0.020 ng/mL (0.0-0.045); eGFR > 60 See Note
--- NOTE | 2025-06-25 11:16 | PC.NURSE ---
RADIOLOGY CALLED MULTIPLE TIMES ABOUT ULTRASOUND AND REPORT STILL NOT DONE
--- NOTE | 2025-06-25 11:28 | PC.NURSE ---
CALLED ULTRASOUND ABOUT RESULTS AND TOLD BY CECIL THAT SHE HAS INFORMED DR. JIMENEZ MULTIPLE TIMES
[2025-06-25 11:48] VITALS: BP 114/84; PULSE 89; RESP 18; TEMP 37; O2SAT 99
[2025-06-25] MEDS: cefTRIAXone 1,000 MG, LIDOCAINE 1% 20 ML 2.1 ML IM (12:55)
== END 2025-06-25 13:25 | disposition home or self-care (01) ==
PROVIDERS: Emergency Provider Emergency Medicine; PCP Family Medicine
DX: K80.20 Calculus of gallbladder without cholecystitis without obstruction (principal); I10 Essential (primary) hypertension; R30.0 Dysuria; R21 Rash and other nonspecific skin eruption
CPT/HCPCS: 36415; 76705; 80053; 81001; 83690; 84484; 85025; 87077; 87086; 87186; 93005; 96372; 99283; J0696; J3490; A9270

== ENCOUNTER 2025-07-26 09:45 | Emergency (ER) | payer OTHER, MEDICAID, SELFPAY ==
[2025-07-26 09:46] VITALS: BMI 24.0
[2025-07-26 09:51] VITALS: BP 152/79; PULSE 60; RESP 18; TEMP 36.4; O2SAT 99
--- NOTE | 2025-07-26 10:04 | EKG_ITS ---
[facility] Test Date: 2025-07-26 Pat Name: ANAND BLACK Department: Room: - Gender: Female Mds Coordinator: : 1945 Requested By: Fabricio Knox Order Number: [id number] Reading MD: Fabricio Knox Measurements Intervals [place] Rate: 57 P: 54 ME: 209 QRS: 27 QRSD: 85 T: 53 QT: 404 QTc: 396 Interpretive Statements SINUS BRADYCARDIA NONSPECIFIC T-WAVE ABNORMALITY Compared to ECG 06/25/2025 06:34:54 Sinus rhythm no longer present T-wave abnormality still present /store/S0/[id number]/[id number].pdf
--- NOTE | 2025-07-26 10:05 | PD.EDRME ---
Rapid Medical Screening Exam RME Arrival date/time: 07/26/25 09:45 80-year-old female with a history of hypertension presents to the emergency room with a chief complaint of dysuria, dizziness, lightheadedness x 1 day I have greeted and performed a focused initial assessment of this patient. A comprehensive ED assessment and evaluation of the patient, analysis of all test results, and completion of the medical decision making process will be conducted by additional ED providers. Chief Complaint: General Adult/Misc Complain Time Seen by Provider: 07/26/25 09:46 Vital signs: Vital Signs Temperature 97.5 F 07/26/25 09:51 Pulse Rate 60 07/26/25 09:51 Respiratory Rate 18 07/26/25 09:51 Blood Pressure 152/79 H 07/26/25 09:51 Pulse Oximetry (%) 99 07/26/25 09:51 Oxygen Delivery Method Room Air 07/26/25 09:51 Vital signs reviewed by provider: Yes
[2025-07-26 11:09] LABS: Basophils # (Auto) 0.1 Thou/mm3 (0.0-0.2); Basophils % (Auto) 1 % (0-2.5); Eosinophils # (Auto) 0.4 Thou/mm3 (0.0-0.5); Eosinophils % (Auto) 5 % (0-10); Hematocrit 34.1 % (36.0-46.0); Hemoglobin 11.1 g/dL (12.0-16.0); Immature Granulocytes Auto 0.03 Thou/mm3 (0.00-0.00); Lymphocytes # (Auto) 0.8 Thou/mm3 (1.0-4.8); Lymphocytes % (Auto) 9 % (10-50); Mean Corpuscular HGB Conc 32.6 g/dl (31.0-37.0); Mean Corpuscular Hemoglobin 31.4 pg (25.0-35.0); Mean Corpuscular Volume 96 fL (80-100); Monocytes # (Auto) 0.6 Thou/mm3 (0.0-0.8); Monocytes % (Auto) 7 % (0-12); Neutrophils # (Auto) 6.8 Thou/mm3 (1.8-7.7); Neutrophils % (Auto) 79 % (37-80); Nucleated Red Blood Cell # 0.00 Thou/mm3 (0.00-0.00); Nucleated Red Blood Cell % 0 /100 WBC (0); Platelet Count 299 Thou/mm3 (140-440); RDW Standard Deviation 48.5 fL (36.4-46.3); Red Blood Count 3.54 Miln/mm3 (4.00-5.20); White Blood Count 8.7 Thou/mm3 (3.6-11.0)
[2025-07-26 11:18] LABS: Alanine Aminotransferase 9 U/L (10-49); Albumin, Serum 4.2 gm/dL (3.4-4.8); Albumin/Globulin Ratio 2.0 (1.2-2.2); Alkaline Phosphatase 102 U/L (46-116); Anion Gap 10 (7-16); Aspartate Amino Transferase 18 U/L (0-34); BUN/Creatinine Ratio 22 Ratio (12-20); Bilirubin,Total 0.4 mg/dL (0.3-1.2); Blood Urea Nitrogen 20 mg/dL (9-23); Calcium 9.2 mg/dL (8.3-10.6); Calcium (Corrected) 9.2 mg/dL (8.5-10.1); Carbon Dioxide 22.3 mMol/L (20.0-31.0); Chloride 111 mMol/L (98-107); Creatinine (Component) 0.9 mg/dL (0.6-1.3); Estimated Creatinine Clearance 42.3 mL/min (>60); Globulin 2.1 gm/dL (2.3-3.5); Glucose 82 mg/dL (74-106); Magnesium 2.4 mg/dL (1.6-2.6); Osmolality,Calculated 286 (275-295); Potassium 4.4 mMol/L (3.4-5.1); Sodium 143 mMol/L (136-145); Total Protein 6.3 gm/dL (5.7-8.2); Troponin I < 0.002 ng/mL (0.0-0.045); eGFR > 60 See Note
[2025-07-26 11:57] LABS: Collection Type, Urine Clean Catch
[2025-07-26 12:10] LABS: Bacteria,Urine Rare; Bilirubin,Urine Negative (Negative); Blood,Urine Trace (Negative); Clarity,Urine Turbid (Clear/Hazy); Color,Urine Yellow (Lt Yel-Yel); Culture Indicated,Urine Contaminated; Glucose, Urine Negative (Negative); Hyaline Casts,Urine 1 /hpf (0-1); Ketones,Urine Negative (Negative); Leukocyte Esterase,Urine Positive (Negative); Nitrite,Urine Negative (Negative); PH,Urine 6.0 (5.0-7.0); Protein,Urine Trace (Neg - Trace); RBC,Urine 16 /hpf (0-3); Specific Gravity,Urine 1.031 (1.001-1.035); Squamous Epithelial Cell,Urine 20 /hpf (0-5); Urobilinogen,Urine Negative mg/dL (0.0-1.0); WBC,Urine 29 /hpf (0-5)
[2025-07-26 12:10] LABS: B-Type Natriuretic Peptide 61 pg/mL (0-100)
[2025-07-26 13:22] LABS: INR 1.0 (0.9-1.3); Partial Thromboplastin Time 20.0 Seconds (22.0-36.0); Prothrombin Time 11.0 Seconds (9.0-12.2)
--- NOTE | 2025-07-26 15:04 | PD.EDADULT ---
ED General RME/HPI General Chief complaint: General Adult/Misc Complain Stated complaint: BURNING WITH URINATION, POSS PROLAPSE/DIZZINESS Time Seen by Provider: 07/26/25 09:46 Arrival date/time: 07/26/25 09:45 RME / HPI RME / HPI narrative: 07/26/25 09:45 80-year-old female with a history of hypertension presents to the emergency room with a chief complaint of dysuria, dizziness, lightheadedness x 1 day I have greeted and performed a focused initial assessment of this patient. A comprehensive ED assessment and evaluation of the patient, analysis of all test results, and completion of the medical decision making process will be conducted by additional ED providers. Related Data Home Medications ?Medication ?Instructions ?Recorded ?Confirmed gabapentin 300 mg capsule 300 mg PO TID 03/07/20 11/01/21 metoprolol tartrate 50 mg tablet 50 mg PO BID 03/07/20 11/01/21 lisinopril 40 mg tablet 40 mg PO QDAY 06/27/21 11/01/21 Previous Rx's ?Medication ?Instructions ?Recorded hydrocodone 5 mg-acetaminophen 325 1 tab PO Q8H PRN severe pain 03/10/20 mg tablet (scale score 7-10) #20 tabs sennosides 8.6 mg-docusate sodium 1 tab PO HS PRN Constipation #15 03/10/20 50 mg tablet (DOK Plus) tabs cyanocobalamin (vitamin B-12) 500 500 mcg PO QDAY #90 tabs 07/09/21 mcg tablet (Vitamin B-12) folic acid 1 mg tablet 1 mg PO QDAY #90 tabs 07/09/21 ondansetron HCl 4 mg tablet 4 mg PO Q6H PRN nausea and 04/02/22 vomiting #14 tabs dimethicone 1 %-zinc oxide 10 1 applic topical .prn rash #113 06/07/25 %-vit A and D-aloe vera topical grams cream (Zinc Oxide Diaper Cream) cephalexin 500 mg capsule 500 mg PO QID #20 caps 06/25/25 nystatin-triamcinolone 100,000 1 applic topical BID #15 grams 06/25/25 unit/g-0.1 % topical cream cephalexin 500 mg capsule 500 mg PO QID #28 caps 09/22/25 Allergies Allergy/AdvReac Type Severity Reaction Status Date / Time No Known Allergies Allergy Verified 07/26/25 09:48 Review of Systems Review of Systems Systems Reviewed: All systems reviewed, normal except as documented Course Orders Category Date Time Status EKG (ED ONLY) *Do not use* NOW Care 07/26/25 10:04 Completed EKG (ED Only) Stat Exams 07/26/25 10:04 Draft B-Type Natriuretic Peptide Stat Lab 07/26/25 10:24 Completed CBC Stat Lab 07/26/25 10:24 Completed Comprehensive Metabolic Panel Stat Lab 07/26/25 10:24 Completed Magnesium Stat Lab 07/26/25 10:24 Completed Partial Thromboplastin Time Stat Lab 07/26/25 10:24 Completed Prothrombin Time with INR Stat Lab 07/26/25 10:24 Completed Troponin I Stat Lab 07/26/25 10:24 Completed Urinalysis, C/S if Indicated Stat Lab 07/26/25 11:53 Completed cefTRIAXone [Rocephin] 1,000 mg Med 07/26/25 15:05 Discontinued Lidocaine 1% 20 ml [Xylocaine 1% 20 ML] 2.1 ml IM X1 Vital Signs Vital signs: Vital Signs Temperature 97.5 F 07/26/25 09:51 Pulse Rate 60 07/26/25 09:51 Respiratory Rate 18 07/26/25 09:51 Blood Pressure 152/79 H 07/26/25 09:51 Pulse Oximetry (%) 99 07/26/25 09:51 Oxygen Delivery Method Room Air 07/26/25 09:51 Discharge Plan Plan Patient Disposition: HOME (Self Care) Prescriptions/Referrals Prescriptions/Med Rec: New cephalexin 500 mg capsule 500 mg PO QID Qty: 28 0RF No Action lisinopril 40 mg tablet 40 mg PO QDAY cyanocobalamin (vitamin B-12) [Vitamin B-12] 500 mcg Tablet 500 mcg PO QDAY Qty: 90 0RF folic acid 1 mg Tablet 1 mg PO QDAY Qty: 90 0RF metoprolol tartrate 50 mg Tablet 50 mg PO BID gabapentin 300 mg Capsule 300 mg PO TID hydrocodone-acetaminophen 5-325 mg Tablet 1 tab PO Q8H MDD 3 tabs PRN (Reason: severe pain (scale score 7-10)) Qty: 20 0RF sennosides-docusate sodium [DOK Plus] 8.6-50 mg Tablet 1 tab PO HS PRN (Reason: Constipation) Qty: 15 0RF ondansetron HCl 4 mg tablet 4 mg PO Q6H PRN (Reason: nausea and vomiting) Qty: 14 0RF Zinc Oxide Diaper Cream 1-10 % cream 1 applic topical .prn Qty: 113 0RF cephalexin 500 mg capsule 500 mg PO QID Qty: 20 0RF nystatin-triamcinolone 100,000-0.1 unit/g-% cream 1 applic topical BID Qty: 15 0RF Referrals: Sacha Azul MD [Primary Care Provider, Family Practice] - In 1 week Problem List Clinical Impression: Urinary tract infection Patient/Caregiver Discharge Instructions Education Materials: ED CYSTITIS Female Adult Additional Instructions: Por favor pedir perry con un urologo para evaluacion de savanah episodios frecuentes de infecciones orinarias. Por favor mantener buena hidratacion. Print Language: Turkish Stand Alone Forms: Isha Award Info., Patient Portal Info Letter MDM Narrative MDM hospital course (for use when minimal MDM required): Patient presents with feeling lightheaded and dysuria. Vital signs and exam as listed. Prior provider evaluated patient. Ordered labs EKG. Labs with evidence of mild hyperchloremia chloride 111, no evidence of kidney failure, no significant liver dysfunction. Troponin not elevated. BNP not elevated. Urinalysis with turbid urine nitrate negative leuk esterase positive at 16 RBCs 29 WBCs and rare bacteria. Given that patient has dysuria we will treat in the emergency department. EKG performed today at 10:10 AM notable for sinus rhythm, normal levels, nonspecific T wave changes, not a cardiac alert. Patient does not have any allergies Medication Administration(s) Medication Administration History Discontinued Medications Ceftriaxone Sodium 1,000 mg/ (Lidocaine HCl 2.1 ml) 0 mg IM X1 ONE Stop: 07/26/25 15:06 Last Admin: 07/26/25 15:31 Dose: 1,000 mg Documented By: JAMES
--- NOTE | 2025-07-26 15:18 | EDNOTE_ITS ---
ED General RME/HPI General Chief complaint: General Adult/Misc Complain Stated complaint: BURNING WITH URINATION, POSS PROLAPSE/DIZZINESS Time Seen by Provider: 07/26/25 09:46 Arrival date/time: 07/26/25 09:45 Limitations: no limitations RME / HPI RME / HPI narrative: 07/26/25 09:45 80-year-old female with a history of hypertension presents to the emergency room with a chief complaint of dysuria, dizziness, lightheadedness x 1 day I have greeted and performed a focused initial assessment of this patient. A comprehensive ED assessment and evaluation of the patient, analysis of all test results, and completion of the medical decision making process will be conducted by additional ED providers. Related Data Home Medications ?Medication ?Instructions ?Recorded ?Confirmed gabapentin 300 mg capsule 300 mg PO TID 03/07/2011/01 metoprolol tartrate 50 mg tablet 50 mg PO BID 03/07/20 11/01/21 lisinopril 40 mg tablet 40 mg PO QDAY 06/27/2111/01 Previous Rx's ?Medication ?Instructions ?Recorded hydrocodone 5 mg-acetaminophen 325 1 tab PO Q8H PRN se gurmeet pain 03/10/20 mg tablet (scale score 7-10) #20 tabs sennosides 8.6 mg-docusate sodium 1 tab PO HS PRN Cons tipation #15 03/10/20 50 mg tablet (DOK Plus) tabs cyanocobalamin (vitamin B-12) 500 500 mcg PO QDAY #90 tabs 07/09/21 mcg tablet (Vitamin B-12) folic acid 1 mg tablet 1 mg PO QDAY #90 tabs ondansetron HCl 4 mg tablet 4 mg PO Q6H PRN nausea and 04/02/22 vomiting #14 tabs dimethicone 1 %-zinc oxide 10 1 applic topical .prn ra sh #113 06/07/25 %-vit A and D-aloe vera topical grams cream (Zinc Oxide Diaper Cream) cephalexin 500 mg capsule 500 mg PO QID #20 caps 06/25 nystatin-triamcinolone 100,000 1 applic topical BID #1 5 grams 06/25/25 unit/g-0.1 % topical cream cephalexin 500 mg capsule 500 mg PO QID #28 caps 07/26 Allergies Allergy/AdvReac Type Severity Reaction Status Date / Time No Known Allergies Allergy Verified 07/26/25 09:48 ED Exam General Limitations: Present no limitations General appearance: Present alert and in no apparent distress Head Head exam: Present atraumatic and normocephalic Eye Eye exam: Present normal appearance, PERRL and EOMI ENT ENT exam: Present normal exam, normal oropharynx and mucous membranes moist Neck Neck exam: Present normal inspection, full ROM and trachea midline Chest Chest inspection: Present normal inspection and symmetric chest wall rise Respiratory Respiratory exam: Present normal lung sounds bilaterally; Absent respiratory distress, wheezes or stridor Cardiovascular Cardiovascular exam: Present regular rate and normal rhythm Abdominal Exam Abdominal exam: Present soft; Absent distention, tenderness or guarding Extremities Exam Extremities exam: Present normal inspection and full ROM; Absent tenderness Back Exam Back exam: Present normal inspection Neurological Exam Neurological exam: Present alert, oriented X3, CN II-XII intact and other (Ambulating at her baseline with a walker) Course Quality Measures none Orders Category Date Time Status EKG (ED ONLY) *Do not use* NOW Care 07/26/25 10:04 Completed EKG (ED Only) Stat Exams 07/26/25 10:04 Draft B-Type Natriuretic Peptide Stat Lab 07/26/25 10:24 Completed CBC Stat Lab 07/26/25 10:24 Completed Comprehensive Metabolic Panel Stat Lab 07/26/25 10:24 Completed Magnesium Stat Lab 07/26/25 10:24 Completed Partial Thromboplastin Time Stat Lab 07/26/25 10:24 Completed Prothrombin Time with INR Stat Lab 07/26/25 10:24 Completed Troponin I Stat Lab 07/26/25 10:24 Completed Urinalysis, C/S if Indicated Stat Lab 07/26/25 11:53 Completed cefTRIAXone [Rocephin] 1,000 mg Med 07/26/25 15:05 Discontinued Lidocaine 1% 20 ml [Xylocaine 1% 20 ML] 2.1 ml IM X1 Vital Signs Vital signs: Vital Signs Temperature 97.5 F 07/26/25 09:51 Pulse Rate 60 07/26/25 09:51 Respiratory Rate 18 07/26/25 09:51 Blood Pressure 152/79 H 07/26/25 09:51 Pulse Oximetry (%) 99 07/26/25 09:51 Oxygen Delivery Method Room Air 07/26/25 09:51 Discharge Plan Plan Patient Disposition: HOME (Self Care) Prescriptions/Referrals Prescriptions/Med Rec: New cephalexin 500 mg capsule 500 mg PO QID Qty: 28 0RF No Action lisinopril 40 mg tablet 40 mg PO QDAY cyanocobalamin (vitamin B-12) [Vitamin B-12] 500 mcg Tablet 500 mcg PO QDAY Qty: 90 0RF folic acid 1 mg Tablet 1 mg PO QDAY Qty: 90 0RF metoprolol tartrate 50 mg Tablet 50 mg PO BID gabapentin 300 mg Capsule 300 mg PO TID hydrocodone-acetaminophen 5-325 mg Tablet 1 tab PO Q8H MDD 3 tabs PRN (Reason: severe pain (scale score 7-10)) Qty: 20 0RF sennosides-docusate sodium [DOK Plus] 8.6-50 mg Tablet 1 tab PO HS PRN (Reason: Constipation) Qty: 15 0RF ondansetron HCl 4 mg tablet 4 mg PO Q6H PRN (Reason: nausea and vomiting) Qty: 14 0RF Zinc Oxide Diaper Cream 1-10 % cream 1 applic topical .prn Qty: 113 0RF cephalexin 500 mg capsule 500 mg PO QID Qty: 20 0RF nystatin-triamcinolone 100,000-0.1 unit/g-% cream 1 applic topical BID Qty: 15 0RF Referrals: Sacha Azul MD [Primary Care Provider, Family Practice] - In 1 week Problem List Clinical Impression: Urinary tract infection Patient/Caregiver Discharge Instructions Education Materials: ED CYSTITIS Female Adult Additional Instructions: Por favor pedir perry con un urologo para evaluacion de savanah episodios frecuentes de infecciones orinarias. Por favor mantener buena hidratacion. Print Language: Nicaraguan Stand Alone Forms: Isha Award Info., Patient Portal Info Letter MDM Narrative MDM hospital course (for use when minimal MDM required): Patient is a 80-year-old female is in the emergency department with concerns for weakness and dysuria. Vital signs and exam as listed. Concern for urinary tract infection, metabolic disturbance among others. Prior provider evaluated patient. Ordered labs EKG. Labs without any acute hematologic abnormality, patient does have mild hypokalemia, chloride 111, no evidence of renal dysfunction, no significant transaminitis, troponin not elevated, EKG performed today at 1010 sinus rhythm, normal intervals, nonspecific T wave changes, not a cardiac alert. Urinalysis with evidence of infection. Will provide patient with antibiotics. Check patient's cultures. Patient is sensitive to cephalosporins. Provided patient with Rocephin and will send home with a prescription for antibiotics. Also advised to follow-up with a urologist for further evaluation given recurrent urinary tract infections. Patient not septic not distress and agreement with treatment plan. Clinical Information Provided by: patient and family Medical Records reviewed [facility] Meds/Rx considered, not ordered None Labs/Rad/Tests considered, not ordered None Chronic Illness/Social Conditions Explain: Recurrent urinary tract infection. Imaging Imaging interpretation: interpreted by me Medication Administration(s) none (Ceftriaxone) Medication Administration History Discontinued Medications Ceftriaxone Sodium 1,000 mg/ (Lidocaine HCl 2.1 ml) 0 mg IM X1 ONE Stop: 07/26/25 15:06 Diagnosis Differential Diagnosis ED Complaint MDM: Urinary tract infection
[2025-07-26] MEDS: cefTRIAXone 1,000 MG, LIDOCAINE 1% 20 ML 2.1 ML IM (15:31)
[2025-07-26 15:45] VITALS: BP 142/76; PULSE 68; RESP 18; O2SAT 100
== END 2025-07-26 18:04 | disposition home or self-care (01) ==
PROVIDERS: Emergency Provider Emergency Medicine; PCP Family Medicine; Referring Provider Nurse Practitioner Family
DX: N39.0 Urinary tract infection, site not specified (principal); I10 Essential (primary) hypertension
CPT/HCPCS: 36415; 80053; 81001; 83735; 83880; 84484; 85025; 85610; 85730; 93005; 96372; 99283; J0696; J3490

== ENCOUNTER 2025-08-17 07:50 | Day surgery (SDC) | payer OTHER, MEDICAID, SELFPAY ==
[2025-08-11 10:57] VITALS: BMI 27.3
[2025-08-11 12:09] LABS: Basophils # (Auto) 0.1 Thou/mm3 (0.0-0.2); Basophils % (Auto) 1 % (0-2.5); Eosinophils # (Auto) 0.2 Thou/mm3 (0.0-0.5); Eosinophils % (Auto) 3 % (0-10); Hematocrit 35.4 % (36.0-46.0); Hemoglobin 11.4 g/dL (12.0-16.0); Immature Granulocytes Auto 0.03 Thou/mm3 (0.00-0.00); Lymphocytes # (Auto) 0.9 Thou/mm3 (1.0-4.8); Lymphocytes % (Auto) 15 % (10-50); Mean Corpuscular HGB Conc 32.2 g/dl (31.0-37.0); Mean Corpuscular Hemoglobin 31.3 pg (25.0-35.0); Mean Corpuscular Volume 97 fL (80-100); Monocytes # (Auto) 0.7 Thou/mm3 (0.0-0.8); Monocytes % (Auto) 11 % (0-12); Neutrophils # (Auto) 4.2 Thou/mm3 (1.8-7.7); Neutrophils % (Auto) 70 % (37-80); Nucleated Red Blood Cell # 0.00 Thou/mm3 (0.00-0.00); Nucleated Red Blood Cell % 0 /100 WBC (0); Platelet Count 250 Thou/mm3 (140-440); RDW Standard Deviation 49.5 fL (36.4-46.3); Red Blood Count 3.64 Miln/mm3 (4.00-5.20); White Blood Count 6.1 Thou/mm3 (3.6-11.0)
[2025-08-11 12:16] LABS: Alanine Aminotransferase 8 U/L (10-49); Albumin, Serum 4.5 gm/dL (3.4-4.8); Albumin/Globulin Ratio 2.3 (1.2-2.2); Alkaline Phosphatase 102 U/L (46-116); Anion Gap 11 (7-16); Aspartate Amino Transferase 16 U/L (0-34); BUN/Creatinine Ratio 22 Ratio (12-20); Bilirubin,Total 0.4 mg/dL (0.3-1.2); Blood Urea Nitrogen 22 mg/dL (9-23); Calcium 9.5 mg/dL (8.3-10.6); Calcium (Corrected) 9.5 mg/dL (8.5-10.1); Carbon Dioxide 22.6 mMol/L (20.0-31.0); Chloride 110 mMol/L (98-107); Creatinine (Component) 1.0 mg/dL (0.6-1.3); Estimated Creatinine Clearance 36.7 mL/min (>60); Globulin 2.0 gm/dL (2.3-3.5); Glucose 93 mg/dL (74-106); Osmolality,Calculated 290 (275-295); Potassium 4.3 mMol/L (3.4-5.1); Sodium 144 mMol/L (136-145); Total Protein 6.5 gm/dL (5.7-8.2); eGFR 57 See Note
[2025-08-11 12:22] LABS: INR 1.0 (0.9-1.3); Prothrombin Time 10.9 Seconds (9.0-12.2)
--- NOTE | 2025-08-16 14:03 | SUR.PREOP ---
Pt notified to come in tomorrow at 0800.
[2025-08-17] VITALS (8 sets, daily range): BP systolic 153–184; BP diastolic 65–97; PULSE 59–68; RESP 12–20; TEMP 36.4–36.7; O2SAT 97–100; BMI 28.5
--- NOTE | 2025-08-17 10:29 | ESOP_ITS ---
Date of Procedure 08/17/25 Pre Op Diagnosis Symptomatic cholelithiasis Post Op Diagnosis Cholelithiasis with cholecystitis Procedure Laparoscopic cholecystectomy Findings Distended gallbladder with multiple small gallstones and chronic cholecystitis. Anterior surface of the liver was smooth without nodules or any lesions. Procedure Description Patient was brought into the operating room in supine position. After administration of general endotracheal anesthesia abdomen was prepped and draped in standard surgical manner. Patient did not appear to have umbilicus. A Veress needle was inserted in left upper quadrant and pneumoperitoneum was obtained up to 15 mmHg. The Veress needle was then removed, a 5 mm infraumbilical incision was made and the 5mm trocar was inserted. Laparoscopic camera was placed. Under direct visualization a laparoscopic camera a 10 mm trocar was placed in subxiphoid and two 5 mm trocars placed in right upper quadrant. Anterior surface of the liver was smooth without nodules or any lesions. The gallbladder was identified and was noted to be distended with multiple gallstones and chronic cholecystitis. It was retracted cephalad and laterally. Dissection started near the infundibulum of gallbladder where cystic duct and gallbladder junction clearly identified. The cystic duct was circumferentially dissected off the peritoneum and surrounding inflammatory tissue. The critical view of safety was clearly demonstrated. Cystic duct was then divided between 2 endoclips proximally and one distally. The cystic artery was similarly dissected and divided. The gallbladder was then from the liver bed using electrocautery. The gallbladder was then placed inside an Endo Catch and removed from the abdomen utilizing subxiphoid trocar site. The area was copiously and thoroughly washed and irrigated, all the fluid was suctioned and the suction fluid returned clear. Hemostasis achieved using electrocautery. Endoclips noted be in place and intact without any bleeding or any leakage. Hemostasis was adequate and satisfactory. The subxiphoid trocar sites fascial defect was closed with 0 Vicryl using Endo Closure device. Instruments and trocars removed, pneumoperitoneum was evacuated and the incisions closed with 4-0 Monocryl in subcuticular fashion. Instrument needle and sponge counts were all reported to be correct X2. Patient tolerated the procedure well, was extubated, breathing spontaneously and without difficulty and was transferred to postanesthesia care in stable condition. Anesthesia GETA and local Pathology / specimen Other (Gallbladder and contents) Estimated Blood Loss 10 Condition Stable Disposition PACU Surgeon Alberto Ardon MD Surgical Staff Operation Date: 08/17/25 10:00 Case Staff Anesthesiologist: Galo Wilkins RNpicking machine operator: Janette Gurrola
[2025-08-17] MEDS: fentaNYL CIT INJ 50 mCg/ML AMP 2ML IVP (11:12)
--- NOTE | 2025-08-17 11:42 | SUR.PHASEII ---
1142 Patient meets discharge criteria from recovery, awake and alert, breathing unlabored, vital signs stable, per patient her pain is tolerable when resting, discomfort with movement, dressing intact; no bleeding noted, assisted with dressing into her clothing by this fha underwriter, discharge instructions given to patient and patients son with the assistance of the telephone power lineworker Brittny ID# [id number], son signed discharge instructions. Patient given all her belongings prior to discharge, transporter via wheelchair and left in a private vehicle.
== END 2025-08-17 11:42 | disposition home or self-care (01) ==
PROVIDERS: Referring Provider Surgery; Visit Provider Surgery
PROC: 0FT44ZZ Resection of Gallbladder, Percutaneous Endoscopic Approach (ICD-10-PCS; CPT 47562; principal; 2025-08-17 10:00)
DX: K80.10 Calculus of gallbladder with chronic cholecystitis without obstruction (principal); E78.00 Pure hypercholesterolemia, unspecified; Z79.899 Other long term (current) drug therapy
CPT/HCPCS: 47562; A4217; A4649; J0131; J0694; J1100; J1885; J2371; J2405; J2704; J3010; J3490; J1805

== ENCOUNTER 2025-11-02 06:55 | Day surgery (SDC) | payer OTHER, MEDICAID, SELFPAY ==
[2025-11-02] VITALS (9 sets, daily range): BP systolic 141–177; BP diastolic 72–99; PULSE 70–86; RESP 14–19; TEMP 36.2–37.1; O2SAT 96–100; BMI 24.0
[2025-11-02] MEDS: MIDAZOLAM INJ 1 MG/ML VIAL 2 ML (ASD USE ONLY) 2 MG IVP (07:55)
[2025-11-02] MEDS: SODIUM CHLORIDE 0.9% 500 ML 500 ML 20 ML IV (07:55)
[2025-11-02] MEDS: fentaNYL CIT INJ 50 mCg/ML AMP 2ML (ASD USE ONLY) IVP (07:59)
== END 2025-11-02 08:55 | disposition home or self-care (01) ==
PROVIDERS: PCP Family Medicine; Referring Provider Surgery; Visit Provider Surgery
PROC: 0DBE8ZX Excision of Large Intestine, Via Natural or Artificial Opening Endoscopic, Diagnostic (ICD-10-PCS; CPT 45380; principal; 2025-11-02 07:30)
DX: K64.1 Second degree hemorrhoids (principal); K62.5 Hemorrhage of anus and rectum; E78.00 Pure hypercholesterolemia, unspecified; Z79.899 Other long term (current) drug therapy
CPT/HCPCS: 45378; J1200; J2250; J3010; J7999